=== PATIENT | female | born 1975 | race Caucasian/White ===

== ENCOUNTER 2017-07-24 20:28 | Inpatient (IN) | payer OTHER ==
[~2017-07-24] VITALS: Ht 152.4 cm; Wt 109.0 kg
[2017-07-24 21:25] LABS: BASOPHIL % 0.3 % (0-2); PLATELET COUNT 242 x10^3mcL (130-400); RED CELL DISTRIBUTION WIDTH 12.9 % (11.5-14.5)
[2017-07-24 21:35] LABS: CALCIUM 8.7 mg/dL (8.5-10.1); CARBON DIOXIDE 33.1 mmol/L (21-32); CHLORIDE SERUM 100 mmol/L (98-107); CREATININE SERUM 0.9 mg/dL (0.6-1.0); GFR1 > 60 mL/min; GLUCOSE SERUM 104 mg/dL (74-106); POTASSIUM SERUM 3.8 mmol/L (3.5-5.1); SODIUM SERUM 139 mmol/L (136-145)
[2017-07-24 21:47] LABS: ALKALINE PHOSPHATASE 97 U/L (46-116); ALT/SGPT 25 U/L (14-59); AST/SGOT 21 U/L (15-37); BILIRUBIN TOTAL 0.4 mg/dL (0.20-1.00)
[2017-07-24 21:50] LABS: TOTAL PROTEIN, SERUM 8.3 g/dL (6.4-8.2)
[2017-07-24] MEDS ORDERED: NOR5 PO (22:29)
[2017-07-24] MEDS ORDERED: LOSARTAN POTASS50 M1 PO (22:30)
[2017-07-24 23:37] VITALS: BP 141/82
[2017-07-25] VITALS (7 sets, daily range): BP systolic 131–145; BP diastolic 72–86
[2017-07-25 07:04] LABS: BASOPHIL % 0.5 % (0-2); PLATELET COUNT 225 x10^3mcL (130-400); RED CELL DISTRIBUTION WIDTH 12.6 % (11.5-14.5)
[2017-07-25 07:21] LABS: CALCIUM 8.9 mg/dL (8.5-10.1); CHLORIDE SERUM 103 mmol/L (98-107); CREATININE SERUM 0.7 mg/dL (0.6-1.0); GFR1 > 60 mL/min; GLUCOSE SERUM 119 mg/dL (74-106); POTASSIUM SERUM 3.9 mmol/L (3.5-5.1); SODIUM SERUM 138 mmol/L (136-145)
[2017-07-25] MEDS ORDERED: COZ50 PO (18:55)
[2017-07-25] MEDS ORDERED: NOR10 PO (19:07)
== END 2017-07-25 21:15 | disposition home or self-care (01) | DRG 199 ==
LOC: ED 20:28 → DU 22:46
PROVIDERS: Emergency Medicine; ADMIT Internal Medicine Pulmonary Disease
DX: I16.0 Hypertensive urgency (principal); L92.9 Granulomatous disorder of the skin and subcutaneous tissue, unspecified; Z88.6 Allergy status to analgesic agent; I10 Essential (primary) hypertension
CPT/HCPCS: J0360; J1885; J2270; J3010; J7030; Q0092; Q0164